=== PATIENT | female | born 1970 | race Caucasian/White ===

== ENCOUNTER → 2022-11-25 | Day surgery (SDC) | payer OTHER ==
[~2022-11-25] MED LIST: B-100 COMPLEX100 MG PO; B-121000 MC2; B12; LIDOCAINE HCL 2% LOCAL INJ 5 ML SDV VIAL INJ ONE; MIDAZOLAM HCL 2 MG/2 ML VIAL ONE; PROPOFOL IV EMULSION 10 MG/ML 20 ML VIAL ONE; VITAMIN D350 MCG
[2022-11-25 10:25] VITALS: TEMP 97.2
[2022-11-25 10:55] VITALS: BP 111/87; PULSE 80; RESP 16; O2SAT 98
== END | disposition home or self-care (01) ==
LOC: OR 08:14
PROVIDERS: ATTEND Internal Medicine Gastroenterology
DX: Z12.11 Encounter for screening for malignant neoplasm of colon (principal); D12.3 Benign neoplasm of transverse colon; K64.8 Other hemorrhoids; R12 Heartburn; J45.909 Unspecified asthma, uncomplicated; N39.0 Urinary tract infection, site not specified; Z01.810 Encounter for preprocedural cardiovascular examination
CPT/HCPCS: 45384; 93005; J2001; J2250; J2704; 45378